=== PATIENT | female | born 2005 | race Caucasian/White ===

== ENCOUNTER 2024-08-25 21:43 | Inpatient (IN) | payer OTHER, MEDICAID, SELFPAY ==
[2024-08-25 21:50] VITALS: BP 121/80; PULSE 91; RESP 16; TEMP 36.7; O2SAT 98; BMI 20.9
--- NOTE | 2024-08-25 22:13 | ED.C_ITS ---
HPI - Psych 2 General: Chief Complaint: Psychiatric Symptoms Stated Complaint: SI Time Seen by Provider: 08/25/24 21:59 History of Present Illness: 18-year-old female with a history of dep ression who presents to the emergency room with suicidal ideation. She has had some superficial cutting on her wrist. She is very tearful and quiet. She was hospitalized previously here. She feels like her medications are not helping at this point. Related Data Home Medications Medication Instructions Recorded Confirmed cetirizine 10 mg tablet 10 mg PO DAILY PRN Allergy Symptoms 03/30/24 08/25/24 bupropion HCl 300 mg 24 hr tablet, 300 mg PO DAILY 08/25/24 08/25/24 extended release (Wellbutrin XL) trazodone 100 mg tablet 100 mg PO BEDTIME 08/25/24 08/25/24 Allergies Allergy/AdvReac Type Severity Reaction Status Date / Time No Known Allergies Allergy Verified 08/25/24 21:50 Review of Systems 2 Narrative: Constitutional symptoms: Negative except as documented in HPI. Skin symptoms: Negative except as documented in HPI. Eye symptoms: Negative except as documented in HPI. ENMT symptoms: Negative except as documented in HPI. Respiratory symptoms: Negative except as documented in HPI. Cardiovascular symptoms: Negative except as documented in HPI. Gastrointestinal symptoms: Negative except as documented in HPI. Genitourinary symptoms: Negative except as documented in HPI. Musculoskeletal symptoms: Negative except as documented in HPI. Neurologic symptoms: Negative except as documented in HPI. Psychiatric symptoms: Negative except as documented in HPI. Endocrine symptoms: Negative except as documented in HPI. [facility] ED 2 PFSH: Medical History (Updated 08/25/24 @ 23:32 by Kristy Disla MD) Psychiatric care Female Reproductive History: Date of last menstrual period: 08/23/24 Physical Exam 2 Narrative: EXAM NARRATIVE: General: Alert. no acute distress Skin: Warm, dry superficial wounds to palmar side of the wrist bilaterally. Head: Normocephalic, atraumatic. Neck: Supple, trachea midline. Eye: Extraocular movements are intact. Ears, nose, mouth and throat: Oral mucosa moist. Cardiovascular: Regular rate and rhythm, Normal peripheral perfusion. Respiratory: Lungs are clear to auscultation, respirations are non-labored, breath sounds are equal, Symmetrical chest wall expansion. Gastrointestinal: Soft, Nontender, Non distended, Normal bowel sounds. Musculoskeletal: Normal ROM, no deformity. Neurological: Alert and oriented to person, place, time, and situation, No focal neurological deficit observed. Psychiatric: Cooperative, depressed, expresses suicidal ideation. Course 2 Vital Signs: Vital signs: Vital Signs Temperature 98.0 F 08/25/24 21:50 Pulse Rate 91 08/25/24 21:50 Respiratory Rate 16 08/25/24 21:50 Blood Pressure 121/80 08/25/24 21:50 Pulse Oximetry 98 08/25/24 21:50 Oxygen Delivery Me thod Room Air 08/25/24 21:50 MDM - Psych Medical Decision Making Differential diagnosis: Patient with reported depression and suicidal ideation. concerns for infection, alcohol intoxication, cardiac issues or other medical problems prior to psychiatric admission. Workup: labwork, ekg ordered to evaluate the pathologies and to clear the patient medically prior to psychiatric admission Lab Review: Laboratory results were reviewed and interpreted by myself the emergency room physician. - Medically cleared. - EKG shows no ischemic changes. - Blood alcohol level is negative, -Tylenol and salicylate levels are negative. - Drug screen is negative - No signs of infection, urinalysis clear and white count is not elevated - No anemia. - BUN and creatinine are within normal limits. Consultation: Spoke with Dr. Singletary who agrees to admission. Assessment and plan: Suicidal ideation Depression Self-mutilating behavior -Admission to neuropsychiatric unit for continued evaluation and treatment. - All lab work was reviewed and interpreted personally by myself, the ER physician - Evaluation and treatment of this problem were appropriate in the emergency setting Lab Data 08/25/24 22:14 08/25/24 22:14 Laboratory Results WBC 10.18 10^3/uL (4.5-13.0) 08/25/24 22:14 RBC 4.29 10^6/uL (3.85-5.65) 08/25/24 22:14 Hgb 12.00 g/dL (12.4-14.8) L 08/25/24 22:14 Hct 35.9 % (36-47) L 08/25/24 22:14 MCV 83.7 fl (85-98) L 08/25/24 22:14 MCH 28.0 pg (27-33) 08/25/24 22:14 MCHC 33.4 g/dL (30-55) 08/25/24 22:14 RDW 12.0 % (12.1-15.1) L 08/25/24 22:14 Plt Count 238 10^3/cmm (157-399) 08/25/24 22:14 MPV 11.1 fL (7.4-10.4) H 08/25/24 22:14 Neut % (Auto) 66.3 % 08/25/24 22:14 Lymph % (Auto) 25.0 % 08/25/24 22:14 [place] % (Auto) 6.9 % 08/25/24 22:14 Eos % (Auto) 1.1 % 08/25/24 22:14 Baso % (Auto) 0.4 % 08/25/24 22:14 Neut # (Auto) 6.75 10^3/uL (1.8-8.0) 08/25/24 22:14 Lymph # (Auto) 2.6 10^3/uL (1.5-6.5) 08/25/24 22:14 [place] # (Auto) 0.7 10^3/uL (0.2-0.9) 08/25/24 22:14 Eos # (Auto) 0.1 10^3/uL (0.0-0.8) 08/25/24 22:14 Baso # (Auto) 0.0 10^3/uL (0.0-0.1) 08/25/24 22:14 Nucleated RBC % (auto) 0 % 08/25/24 22:14 Nucleated RBCs # 0.0 /100WBC 08/25/24 22:14 Sodium 135 mmol/L (136-145) L 08/25/24 22:14 Potassium 3.7 mmol/L (3.5-5.1) 08/25/24 22:14 Chloride 100 mmol/L (98-107) 08/25/24 22:14 Carbon Dioxide 23 mmol/L (22-29) 08/25/24 22:14 Anion Gap 15.7 (5-19) 08/25/24 22:14 BUN 13 mg/dL (6-20) 08/25/24 22:14 Creatinine 0.6 mg/dL (0.5-0.9) 08/25/24 22:14 GFR Calculation 128.8 mL/min (90-130) 08/25/24 22:14 Glucose 103 mg/dL (65-115) 08/25/24 22:14 Calculated Osmolality 280 mOsm/kg (285-295) L 08/25/24 22:14 Calcium 9.1 mg/dL (8.5-10.5) 08/25/24 22:14 Total Bilirubin 0.2 mg/dL (0.15-1.2) 08/25/24 22:14 AST 14 U/L (0-32) 08/25/24 22:14 ALT 12 U/L (0-33) 08/25/24 22:14 Alkaline Phosphatase 90 U/L (35-105) 08/25/24 22:14 Total Protein 7.1 g/dL (6.6-8.7) 08/25/24 22:14 Albumin 4.3 g/dL (3.5-5.2) 08/25/24 22:14 Globulin 2.8 g/dL (1.3-4.6) 08/25/24 22:14 TSH 3.10 uIU/mL (0.27-4.20) 08/25/24 22:14 HCG, Qual Negative (Negative) 08/25/24 22:00 Urine Color Yellow (Yellow) 08/25/24 22:00 Urine Appearance Clear (CLEAR) 08/25/24 22:00 Urine pH 7.0 (5-7) 08/25/24 22:00 Ur Specific [place] 1.013 (1.005-1.030) 08/25/24 22:00 Urine Protein Negative (Negative) 08/25/24 22:00 Urine Glucose (UA) Negative (Normal) 08/25/24 22:00 Urine Ketones Negative (Negative) 08/25/24 22:00 Urine Blood Negative (Negative) 08/25/24 22:00 Urine Nitrate Negative (Negative) 08/25/24 22:00 Urine Bilirubin Negative (Negative) 08/25/24 22:00 Urine Urobilinogen 1.0 mg/dL (Negative) 08/25/24 22:00 Ur Leukocyte Esterase Negative (Negative) 08/25/24 22:00 Urine RBC 0-2 /hpf (0-2) 08/25/24 22:00 Urine WBC 0-5 /hpf (0-5) 08/25/24 22:00 Ur Squamous Epith Cells 0-5 /hpf (0-5) 08/25/24 22:00 Amorphous Sediment Not Reportable 08/25/24 22:00 Urine Bacteria None seen /hpf (NONE) 08/25/24 22:00 Hyaline Casts 0-4 /lpf H 08/25/24 22:00 Salicylates < 0.3 mg/dL (3-10) L 08/25/24 22:14 Urine Opiates Screen Negative ng/mL (Negative) 08/25/24 22:00 Acetaminophen < 5.0 ug/mL (10-30) L 08/25/24 22:14 Ur Barbiturates Screen Negative ng/mL (Negative) 08/25/24 22:00 Ur Phencyclidine Scrn Negative ng/mL (Negative) 08/25/24 22:00 Ur Amphetamines Screen Negative ng/mL (Negative) 08/25/24 22:00 U Benzodiazepines Scrn Negative ng/mL (Negative) 08/25/24 22:00 Urine Cocaine Screen Negative ng/mL (Negative) 08/25/24 22:00 U Marijuana (THC) Screen Negative ng/mL (Negative) 08/25/24 22:00 Ethyl Alcohol < 10 mg/dL (0-10) 08/25/24 22:14 No radiology studies performed this visit Discharge Plan Discharge Patient Disposition: Admitted As Inpatient Clinical Impression: Suicidal ideation, Depression, Self mutilating behavior Condition: Stable Coding Level of Care Code ED [employer] Coloring Operator for Giselle Rabago
[2024-08-25 22:31] LABS: Basophils % 0.4 %; Eosinophils # 0.1 10^3/uL (0.0-0.8); Eosinophils % 1.1 %; Hematocrit 35.9 % (36-47); Lymphocytes # 2.6 10^3/uL (1.5-6.5); Mean Corpuscular HGB Conc 33.4 g/dL (30-55); Mean Corpuscular Volume 83.7 fl (85-98); Mean Platelet Volume 11.1 fL (7.4-10.4); Monocytes # 0.7 10^3/uL (0.2-0.9); Monocytes % 6.9 %; Neutrophils # 6.75 10^3/uL (1.8-8.0); Neutrophils % 66.3 %; Nucleated Red Blood Cells % 0 %; Platelet Count 238 10^3/cmm (157-399); Red Blood Count 4.29 10^6/uL (3.85-5.65); White Blood Count 10.18 10^3/uL (4.5-13.0)
[2024-08-25 22:34] LABS: HCG Qualitative Urine. Negative (Negative)
[2024-08-25 22:39] LABS: Bilirubin Urine Negative (Negative); Blood Urine Negative (Negative); Glucose Urine UA Negative (Normal); Ketones Urine Negative (Negative); Leukocyte Esterase Urine Negative (Negative); Nitrate Urine Negative (Negative); Protein Urine Negative (Negative); Specific Gravity, Urine 1.013 (1.005-1.030); Urine Appearance Clear (CLEAR); Urine Color Yellow (Yellow)
[2024-08-25 22:44] LABS: Bacteria Urine None Seen /hpf; Hyaline Casts Urine 0-4 /lpf; RBC Urine 0-2 /hpf (0-2); Squamous Epithelial Cell Urine 0-5 /hpf (0-5); WBC Urine 0-5 /hpf (0-5)
[2024-08-25 22:47] LABS: Amphetamines Screen Urine Negative (Negative); Barbiturates Screen Urine Negative (Negative); Benzodiazepines Screen Urine Negative (Negative); Cocaine Screen Urine Negative (Negative); Opiate Screen Urine Negative (Negative); PCP Screen Urine Negative (Negative); THC Screen Urine Negative (Negative)
[2024-08-25 22:56] LABS: Acetaminophen < 5.0 ug/mL (10-30); Alanine Aminotransferase 12 U/L (0-33); Albumin Level 4.3 g/dL (3.5-5.2); Alcohol Level < 10 mg/dL (0-10); Alkaline Phosphatase 90 U/L (35-105); Anion Gap 15.7 (5-19); Aspartate Amino Transferase 14 U/L (0-32); Blood Urea Nitrogen 13 mg/dL (6-20); Calcium 9.1 mg/dL (8.5-10.5); Carbon Dioxide 23 mmol/L (22-29); Chloride 100 mmol/L (98-107); Creatinine Clr Calc Pharmacy 140.8636; Globulin 2.8 g/dL (1.3-4.6); Glomerular Filtration Rate 128.8 mL/min (90-130); Glucose 103 mg/dL (65-115); Osmolality Calculated 280 mOsm/kg (285-295); Potassium 3.7 mmol/L (3.5-5.1); Salicylate < 0.3 mg/dL (3-10); Sodium 135 mmol/L (136-145); Total Bilirubin 0.2 mg/dL (0.15-1.2); Total Protein 7.1 g/dL (6.6-8.7)
[2024-08-25 23:45] VITALS: PULSE 92; RESP 16; O2SAT 98
[2024-08-26] VITALS: BP 129/72; PULSE 80; RESP 18; O2SAT 96
--- NOTE | 2024-08-26 00:05 | PC.NURSE ---
96 Hour Involuntary Hold Patient Rights have been reviewed with the patient and a copy of the same has been given to her. Hospice Superintendent Irene Prakash was present at bedside at the time of presentation of Rights.
[2024-08-26 01:12] VITALS: BP 120/71; PULSE 89; RESP 18; TEMP 37.1; O2SAT 98
[2024-08-26] MEDS: trazodone 100 mg Tablet PO ×2 (02:14→21:33)
[2024-08-26] MEDS: hyDROXYzine 25 mg Capsule 50 MG PO ×2 (02:17→21:33)
--- NOTE | 2024-08-26 06:35 | PC.NURSE ---
vs not collected resp 16
--- NOTE | 2024-08-26 07:50 | PC.OT ---
OT evaluation attempted with pt declining to be seen. Will attempt OT evaluation again at a later time.
[2024-08-26] MEDS: buPROPion XL (24 HR) 300 mg Tablet PO (08:26)
[2024-08-26] MEDS: OLANZapine 5 mg ODT PO (13:39)
--- NOTE | 2024-08-26 13:51 | W.PM.NPUH&PS ---
Providers/Chief Complaint Admitting Physician: Nader Singletary MD Primary Care Provider: Ludy Davis NP Chief Complaint: SI HPI NPU History of Present Illness Dottie Soto is a 18 year old female with 1 previous inpatient psychiatric hospitalization who presented to the emergency department with concerns about suicidal ideation. The patient was admitted to the neuropsychiatric unit for further evaluation and treatment. She reports that she has been receiving treatment under Dr. Yoder at the [facility]. She reported that she has been struggling with having difficulties with controlling her thoughts at this time. She endorses depressed mood for several years but reports that she has had increased episodes of crying, diminished energy, difficulties with concentration and difficulties with falling asleep and staying asleep. She reports that she has had increasing feelings of guilt. She reports that she had been struggling with having control over intrusive sexualized images and her had then involved people including both children and adults. She had reported that she had not acted on any of these images but reported that she found these images to be quite disturbing. During the interview, the patient had asked that the television script writer come closer to her to reveal this information as she had endorsed that she had felt like her thoughts and images were somehow being broadcasted to others and stated that she was not certain that these thoughts were being kept in her own mind. She reports that she had had this problem with intrusive sexualized images and intrusive thoughts for more than a year but stated that she has been trying to keep it under control. She reports that she has been struggling with keeping it under control as she requested a change in medication regimen. She reports that for the first time she has been having some difficulties in school as well with declining grades and diminished concentration after having straight A's in college the prior semester. She does report increased feelings of hopelessness. She denies any drug or alcohol use. She had reported having engaged in some rituals but reported that there were no clear improvements once the rituals were completed. She states that when she was stressed she would often go to the bathroom and sit on the toilet or would attempt to go into a room. She reports that the intrusive thoughts appear to be out of nowhere and reports that they have been scaring her recently. She denies any auditory hallucinations or visual hallucinations at this time. She did not endorse any problems with paranoia. She did report that she often would eat excessively when anxious and described having problems with social anxiety as well in the past. Patient's urine screen was negative for all drugs or alcohol. She does report that she has had increasing stress as she is scheduled to be in 2 weeks to her boyfriend. Inpatient psychiatric history: The patient had reported having been hospitalized at [facility] 1 time in the past for similar issues including suicidal ideation and states having spent 10 days there in January 2024. It appears that during that stay the patient had been placed on risperidone and gradually transition to Invega sustain a but was given only 1 shot of 234 mg prior to arriving at her outpatient appointment at which time she did not receive either the oral risperidone nor the 156 mg of IM Invega. Outpatient psychiatric history: Patient reports receiving weekly therapy at [facility] and states seeing Dr. Yoder for medication management every few months. Previous psychiatric diagnosis includes obsessive-compulsive personality traits, social anxiety disorder, major depressive disorder Current medications: Wellbutrin XL 300 mg daily, trazodone 100 mg at night, Zyrtec 10 mg daily Medical history: None other than seasonal allergies Surgical history: None Allergies: No known drug allergies Legal history: None Family psychiatric history: None Substance abuse history: None Social history: There are no history of developmental delays. Patient currently lives at home with her mother while [employer] [facility]. She had been described as an a student and was the valedictorian of her high school class. She describes herself as a worship Yazidi. She reports that her parents when she was only 9 years old. She has a younger sister aged 18 that she lives in the household as well. She had reported having difficulties with the divorce. She reports that she continues to maintain a relationship with her father. She had hopes of going to nursing school and states that she has been involved in a relationship with a man and states that she is scheduled to be in 2 weeks. She did not endorse being employed at this time. Meds NPU Home Medications Medication Instructions Recorded Confirmed Last Taken Type cetirizine 10 mg tablet 10 mg PO DAILY PRN Allergy Symptoms 03/30/24 08/25/24 Unknown History bupropion HCl 300 mg 24 hr tablet, 300 mg PO DAILY 08/25/24 08/25/24 Unknown History extended release (Wellbutrin XL) trazodone 100 mg tablet 100 mg PO BEDTIME 08/25/24 08/25/24 1 Day Ago History ~08/24/24 Allergies Allergy/AdvReac Type Severity Reaction Status Date / Time No Known Allergies Allergy Verified 08/25/24 21:50 PFSH NPU PFSH: Medical History (Updated 08/26/24 @ 14:10 by Travis Alonso MD) Psychiatric care Mental Status Exam MSE Comments: The patient is alert and oriented to person place time and situation. Her hygiene appeared fair. She appeared somewhat anxious on interview. Speech was decreased in volume and initially halting with some decreased in productivity initially. She had fleeting eye contact. There was evidence of moderate psychomotor retardation. There was no evidence of any abnormal involuntary motor movements, tics, or tremors appreciated. Her mood was described as depressed. Her affect was mood congruent and restricted in range. She had appeared tearful at times during the interview. Her thought process was linear, logical, and goal-directed. She denied any auditory or visual hallucinations but did endorse intrusive sexual images that appear to be somewhat distracting to her. She had endorsed a belief of thought broadcasting with no thought insertion. She denied any homicidal or suicidal ideation. Her recent and remote memory appeared fair. She was pleasant and cooperative during the interview. Her insight appeared limited. Her judgment appeared guarded. Her impulse control appeared fair at this time. Vitals/I&O/Wt Last Vital Signs Temp 98.7 F 08/26/24 01:12 Pulse 89 08/26/24 01:12 Resp 18 08/26/24 01:12 BP 120/71 08/26/24 01:12 Pulse Ox 98 08/26/24 01:12 O2 Del Method Room Air 08/26/24 01:13 08/25/24 08/26/24 08/26/24 22:59 06:59 14:59 Intake Total 0 / 0 Balance 0 / 0 Weight last 48 hrs Weight 58.967 kg Data NPU 08/25/24 22:14 08/25/24 22:14 A&P Assessment and plan (1) MDD (major depressive disorder), recurrent, severe, with psychosis: Plan 18-year-old female with a history of major depressive disorder who reports some psychotic symptoms at this time that appear to be worsening with unknown acute stressors currently not on an antipsychotic at this time. The patient appears willing to receive help and would benefit from a medication to prevent further decompensation. #1.? Engage patient in individual milieu and group therapy. #2?? Recommend sober living treatment at the highest level of care to which the patient is willing to commit #3?? Restart Wellbutrin xl 300mg in am, and add trazodone 100mg at night, ADD Abilify to target psychosis. #4?? TO-15 minute checks? #5?? Will attempt to gather collateral information Involuntary Hold Information 96 Hour Hold: 96 Hour Involuntary Admission: Yes 96 Hour Hold Ending Date: 08/31/24 96 Hour Hold Ending Time: 23:45 Other Hold: Hold End Date: 08/31/24 Attestations NPU Medical Necessity Statement*: Inpatient hospitalization is medically necessary and deemed to ?be ?the clinically appropriate intervention ?at this time.? We will monitor/initiate medications and make changes as indicated.? The patient will be in the hospital for over 2 midnights.? The patient?s likely length of stay 5-7 days. Coding Level of Care Code Acute Code for Chg Fwd Diagnoses MDD (major depressive disorder), recurrent, severe, with psychosis F33.3
[2024-08-26 14:00] VITALS: BP 105/63; PULSE 91; RESP 18; TEMP 36.7; O2SAT 99
[2024-08-26] MEDS: ARIPiprazole 10 mg Tablet 5 MG PO (14:57)
[2024-08-26] MEDS: [UNRECOGNIZED DRUG - OTHER] 1 EACH XX (16:34)
[2024-08-26 21:29] VITALS: BP 108/66; PULSE 105; RESP 18; TEMP 36.7; O2SAT 98
[2024-08-27 06:00] VITALS: BP 99/66; PULSE 106; RESP 16; TEMP 36.7; O2SAT 99
[2024-08-27] MEDS: ARIPiprazole 10 mg Tablet 5 MG PO (08:32)
[2024-08-27] MEDS: buPROPion XL (24 HR) 300 mg Tablet PO (08:32)
[2024-08-27] MEDS: NON-FORMULARY MEDICATION 1 EACH XX (09:30)
[2024-08-27 14:00] VITALS: BP 115/78; PULSE 98; RESP 16; TEMP 36.5; O2SAT 100
--- NOTE | 2024-08-27 16:00 | P.NPUPN_ITS ---
Subjective NPU 2 Subjective: 18-year-old female admitted with depress ion with psychotic features currently on Wellbutrin and Abilify. Patient had reported having less frequent intrusive sexual images. She had continued to report some fear that these may be broadcasted to others. She had reported that she had slept better for the first time in many months. She had continued to report struggles with anxiety particularly in social situations describing symptom suggestive of social anxiety disorder. She had reported having these problems since childhood. She had reported no previous trials on SSRI medications. She had reported having taken sublingual Zyprexa last night that had made her feel excessively tired. She remained somewhat isolative on the milieu. Mental Status Exam 2 MSE Comments: The patient is alert and oriented to person place time and situation. Her hygiene appeared fair. She remained somewhat anxious on interview. Speech was decreased in volume and initially halting with diminished productivity. She had fleeting eye contact. There was evidence of moderate psychomotor retardation. There was no evidence of any abnormal involuntary motor movements, tics, or tremors appreciated. Her mood was described as depressed. Her affect was mood congruent and restricted in range. Her thought process was linear, logical, and goal-directed. She denied any auditory or visual hallucinations but did endorse intrusive sexual images that appear to be somewhat distracting to her. She had endorsed a belief of thought broadcasting with no thought insertion. She denied any homicidal or suicidal ideation. Her recent and remote memory appeared fair. She was pleasant and cooperative during the interview. Her insight appeared limited. Her judgment appeared guarded. Her impulse control appeared fair at this time. Vitals/I&O/Wt Last Vital Signs Temp 97.7 F 08/27/24 14:00 Pulse 98 08/27/24 14:00 Resp 16 08/27/24 14:00 BP 115/78 08/27/24 14:00 Pulse Ox 100 08/27/24 14:00 O2 Del Method Room Air 08/27/24 06:00 Weight last 48 hrs Weight 58.967 kg Data NPU 08/25/24 22:14 08/25/24 22:14 A&P Assessment and plan (1) MDD (major depressive disorder), recurrent, severe, with psychosis: (2) Social anxiety disorder: Plan 18-year-old female with a history of major depressive disorder who reports some psychotic symptoms at this time that appear to be worsening with unknown acute stressors currently not on an antipsychotic at this time. The patient appears willing to receive help and would benefit from a medication to prevent further decompensation. #1.? Engage patient in individual milieu and group therapy. #2?? Recommend sober living treatment at the highest level of care to which the patient is willing to commit #3?? Increase abilify to 7.5mg daily, Decrease wellbutrin xl 150mg in am, add zoloft 25mg daily. #4?? TO-15 minute checks? #5?? Will attempt to gather collateral information Involuntary Hold Information 2 96 Hour Hold: 96 Hour Involuntary Admission: Yes 96 Hour Hold Ending Date: 08/31/24 96 Hour Hold Ending Time: 23:45 Other Hold: Hold End Date: 08/31/24 Attestations NPU 2 Medical Necessity Statement*: Inpatient hospitalization is medically necessary and deemed to ?be ?the clinically appropriate intervention ?at this time.? We will monitor/initiate medications and make changes as indicated.? The patient?s likely length of stay 5-7 days. Coding Level of Care Code Acute Code for Chg Fwd Diagnoses MDD (major depressive disorder), recurrent, severe, with psychosis F33.3 Social anxiety disorder F40.10
[2024-08-27 19:54] VITALS: BP 107/65; PULSE 91; RESP 18; TEMP 36.7; O2SAT 99
[2024-08-27] MEDS: hyDROXYzine 25 mg Capsule 50 MG PO (20:34)
[2024-08-27] MEDS: trazodone 100 mg Tablet PO (20:34)
[2024-08-28 06:00] VITALS: BP 104/73; PULSE 94; RESP 18; TEMP 36.6; O2SAT 98; BMI 21.3
[2024-08-28] MEDS: buPROPion XL (24 HR) 150 mg Tablet PO (08:28)
[2024-08-28] MEDS: NON-FORMULARY MEDICATION 1 EACH XX (08:28)
[2024-08-28] MEDS: ARIPiprazole 10 mg Tablet 7.5 MG PO (08:28)
[2024-08-28] MEDS: sertraline 50 mg Tablet 25 MG PO (08:30)
--- NOTE | 2024-08-28 12:34 | P.NPUPN_ITS ---
Subjective NPU 2 Subjective: 18-year-old female admitted with depress ion with psychotic features currently on Wellbutrin and Abilify. The patient had reported that the intrusive sexual images had been less intense and less frequent. She had endorsed continuing to feel at times like others around her could know that she was having these experiences by being around her. She had reported that she had found them to be more distracting over the past few weeks and stated that this had led to a decline in her ability to function in college. She had also reported a history of significant anxiety and was amenable to switching her antidepressant at this time. She had continued to isolate herself on the milieu. She had reported that she was feeling better. She had reported some fleeting suicidal thoughts at this time. Mental Status Exam 2 MSE Comments: The patient is alert and oriented to person place time and situation. Her hygiene appeared fair. She remained somewhat anxious on interview. Speech was decreased in volume, no halting with diminished rate but normal productivity. She had fleeting eye contact. There was evidence of moderate psychomotor retardation. There was no evidence of any abnormal involuntary motor movements, tics, or tremors appreciated. Her mood was described as depressed. Her affect was mood congruent and restricted in range. Her thought process was linear, logical, and goal-directed. She denied any auditory or visual hallucinations but did endorse intrusive sexual images that appear to be somewhat distracting to her. She had continued reports of concerns of thought broadcasting with no thought insertion. She denied any homicidal or suicidal ideation. Her recent and remote memory appeared fair. She was pleasant and cooperative during the interview. Her insight appeared limited. Her judgment appeared guarded. Her impulse control appeared fair at this time. Vitals/I&O/Wt Last Vital Signs Temp 97.9 F 08/28/24 06:00 Pulse 94 08/28/24 06:00 Resp 18 08/28/24 06:00 BP 104/73 08/28/24 06:00 Pulse Ox 98 08/28/24 06:00 O2 Del Method Room Air 08/28/24 06:00 Weight last 48 hrs Weight 59.874 kg Data NPU 08/25/24 22:14 08/25/24 22:14 A&P Assessment and plan (1) MDD (major depressive disorder), recurrent, severe, with psychosis: (2) Social anxiety disorder: Plan 18-year-old female with a history of major depressive disorder who reports some psychotic symptoms at this time that appear to be worsening with unknown acute stressors currently not on an antipsychotic at this time. The patient appears willing to receive help and would benefit from a medication to prevent further decompensation. #1.? Engage patient in individual milieu and group therapy. #2?? Recommend sober living treatment at the highest level of care to which the patient is willing to commit #3?? Increase abilify to 10mg daily, Decrease wellbutrin xl 150mg in am, continue zoloft 25mg daily with increase in 2-3 days. #4?? TO-15 minute checks? #5?? Will attempt to gather collateral information Involuntary Hold Information 2 96 Hour Hold: 96 Hour Involuntary Admission: Yes 96 Hour Hold Ending Date: 08/31/24 96 Hour Hold Ending Time: 23:45 Other Hold: Hold End Date: 08/31/24 Attestations NPU 2 Medical Necessity Statement*: Inpatient hospitalization is medically necessary and deemed to ?be ?the clinically appropriate intervention ?at this time.? We will monitor/initiate medications and make changes as indicated.? The patient?s likely length of stay 5-7 days. Coding Level of Care Code Acute Code for Chg Fwd Diagnoses MDD (major depressive disorder), recurrent, severe, with psychosis F33.3 Social anxiety disorder F40.10
[2024-08-28 14:00] VITALS: BP 112/71; PULSE 98; RESP 17; TEMP 36.7; O2SAT 98
[2024-08-28 19:43] VITALS: BP 102/61; PULSE 96; RESP 18; TEMP 36.7; O2SAT 100
[2024-08-28] MEDS: trazodone 100 mg Tablet PO (20:06)
[2024-08-28] MEDS: hyDROXYzine 25 mg Capsule 50 MG PO (20:06)
[2024-08-29 06:00] VITALS: BP 109/76; PULSE 110; RESP 18; TEMP 36.8; O2SAT 99
--- NOTE | 2024-08-29 08:42 | PC.NURSE ---
RESTING IN BED, EVASIVE WITH ASSESSMENT. FLAT AFFECT IS NOTED AND DEPRESSED MOOD. ISOLATES AND WITHDRAWN TO ROOM. REPORTS SHE SLEPT WELL LAST NIGHT. RATES ANXIETY / AND DEPRESSION /.DENIES SI/HI AND AVH AT THIS TIME. REPORTS NO BM SINCE THURSDAY. NEW ORDERS RECEIVED FROM DR. GUADALUPE TO GIVE MILK OF MAG 30 ML PO BID PRN CONSTIPATION. PT EDUCATED ON NEW ORDERS. SUPPORT WAS VOICED.
[2024-08-29] MEDS: buPROPion XL (24 HR) 150 mg Tablet PO (08:48)
[2024-08-29] MEDS: magnesium hydroxide 30 mL UDC PO (08:49)
[2024-08-29] MEDS: sertraline 50 mg Tablet 25 MG PO (08:49)
[2024-08-29] MEDS: ARIPiprazole 10 mg Tablet PO (08:49)
[2024-08-29] MEDS: NON-FORMULARY MEDICATION 1 EACH XX (08:49)
--- NOTE | 2024-08-29 11:59 | P.NPUPN_ITS ---
Subjective NPU 2 Subjective: Patient presented today reporting that things were mostly going okay. She endorsed being tired today and not being certain whether that was related to the medication or not but otherwise she denied any side effects to medication. She was somewhat isolative in her room for much of the day. She acknowledged that she thought the medications were helping and we discussed the risks, benefits and alternatives of moving forward with the plan of increasing her Zoloft tomorrow to 50 mg p.o. daily and possibly increasing Abilify and she understood and agreed to proceed as is documented in this note. Mental Status Exam 2 MSE Comments: This is a slender white female in hospital scrubs with adequate grooming and eye contact. No abnormal movements except for mild to moderate psychomotor retardation. Cooperative with exam in mild distress. Speech was decreased rate and volume. Mood described as a little down, affect was congruent and restricted. Her thought process was linear, logical, and goal-directed. Thought content: Patient denied suicidal or homicidal ideation, there were no delusions reported or noted, she denied any auditory or visual hallucinations but did endorse intrusive sexual images that appear to be somewhat distracting to her. She had continued reports of concerns of thought broadcasting with no thought insertion. Attention and concentration are intact and memory appeared mostly reliable but no more formally tested. She is alert and oriented x 3. Her insight and judgment were limited. Her impulse control appeared fair at this time. Vitals/I&O/Wt Last Vital Signs Temp 98.3 F 08/29/24 06:00 Pulse 110 H 08/29/24 06:00 Resp 18 08/29/24 06:00 BP 109/76 08/29/24 06:00 Pulse Ox 99 08/29/24 06:00 O2 Del Method Room Air 08/29/24 06:00 Weight last 48 hrs Weight 59.874 kg Data NPU 08/25/24 22:14 08/25/24 22:14 A&P Assessment and plan (1) MDD (major depressive disorder), recurrent, severe, with psychosis: (2) Social anxiety disorder: Plan 18-year-old female with a history of major depressive disorder who reports some psychotic symptoms at this time that appear to be worsening with unknown acute stressors currently not on an antipsychotic at this time. The patient appears willing to receive help and would benefit from a medication to prevent further decompensation. 1.? Encourage individual, group and milieu therapy. 2.??Encourage sober living treatment at the highest level of care to which the patient is willing to commit. 3.? Increased abilify to 10mg daily, Decrease wellbutrin xl 150mg in am, continue zoloft 25mg daily with increase in 1-2 days. 4.??Continue every 15 minute checks for safety.? 5.??Will attempt to gather collateral information Involuntary Hold Information 2 96 Hour Hold: 96 Hour Involuntary Admission: Yes 96 Hour Hold Ending Date: 08/31/24 96 Hour Hold Ending Time: 23:45 Other Hold: Hold End Date: 08/31/24 Attestations NPU 2 Medical Necessity Statement*: Inpatient hospitalization is medically necessary and the clinically appropriate intervention at this time.? We will monitor/initiate medications and make changes as indicated.? The patient?s likely length of stay 5-7 days. Coding Level of Care Code Acute Code for g Fwd Diagnoses MDD (major depressive disorder), recurrent, severe, with psychosis F33.3 Social anxiety disorder F40.10
[2024-08-29 14:00] VITALS: BP 114/53; PULSE 97; RESP 17; TEMP 36.4; O2SAT 99
--- NOTE | 2024-08-29 18:30 | PC.NURSE ---
PT REPORTED TO STAFF I GOT CHOKED ON MY FRUIT PUNCH AND THREW UP A LITTLE BIT. PT ALSO REPORTED THIS MORNING SHE GOT SICK EATING BREAKFAST. REPORTED INFORMATION TO DR. GUADALUPE AND NO NEW ORDERS WERE RECEIVED. WILL PASS ON TO NURSING STAFF TO MONITOR AND REPORT NEEDED. PT STATES SHE IS FEELING BETTER AND IS EATING SALTINES AND DRINKING WATER WITHOUT DIFFICULTY.
[2024-08-29 20:08] VITALS: BP 111/75; PULSE 98; RESP 16; O2SAT 97
[2024-08-30 06:00] VITALS: BP 104/70; PULSE 98; RESP 16; TEMP 36.9; O2SAT 98
[2024-08-30] MEDS: sertraline 50 mg Tablet 25 MG PO ×2 (08:19→17:49)
[2024-08-30] MEDS: buPROPion XL (24 HR) 150 mg Tablet PO (08:19)
[2024-08-30] MEDS: ARIPiprazole 10 mg Tablet PO (08:19)
[2024-08-30] MEDS: NON-FORMULARY MEDICATION 1 EACH XX (08:20)
--- NOTE | 2024-08-30 11:46 | P.NPUPN_ITS ---
Subjective NPU 2 Subjective: Patient presented today reporting that she is feeling some improvement. We discussed the risks, benefits and alternatives of increasing her Zoloft to 50 mg daily today and she understood and agreed to proceed as is documented in this note. We discussed the likelihood of discontinuing the Wellbutrin XL at discharge and the possibility of discharge by the end of the week. We discussed the 21-day hold process and the possibility that we could just agree on a possible discharge date if she is agreeable to stay. She denied any side effects to the medication and reports she starting to feel a little less sleepy and is worried about getting back to school but knows she needs a little more time on the medication so feels this weekend or the end of the week could be a reasonable time. Mental Status Exam 2 MSE Comments: This is a slender white female in hospital scrubs with adequate grooming and eye contact. No abnormal movements except for mild to moderate psychomotor retardation. Cooperative with exam in mild distress. Speech was decreased rate and volume. Mood described as a little better, affect was congruent but restricted. Her thought process was linear, logical, and goal-directed. Thought content: Patient denied suicidal or homicidal ideation, there were no delusions reported or noted, she denied any auditory or visual hallucinations but did endorse intrusive sexual images that appear to be somewhat distracting to her. She had continued reports of concerns of thought broadcasting with no thought insertion. Attention and concentration are intact and memory appeared mostly reliable but no more formally tested. She is alert and oriented x 3. Her insight and judgment were limited. Her impulse control appeared fair at this time. Vitals/I&O/Wt Last Vital Signs Temp 98.4 F 08/30/24 06:00 Pulse 98 08/30/24 06:00 Resp 16 08/30/24 06:00 BP 104/70 08/30/24 06:00 Pulse Ox 98 08/30/24 06:00 O2 Del Method Room Air 08/30/24 06:00 Data NPU 08/25/24 22:14 08/25/24 22:14 A&P Assessment and plan (1) MDD (major depressive disorder), recurrent, severe, with psychosis: (2) Social anxiety disorder: Plan 18-year-old female with a history of major depressive disorder who reports some psychotic symptoms at this time that appear to be worsening with unknown acute stressors currently not on an antipsychotic at this time. The patient appears willing to receive help and would benefit from a medication to prevent further decompensation. 1.? Encourage individual, group and milieu therapy. 2.??Encourage sober living treatment at the highest level of care to which the patient is willing to commit. 3.? Increased abilify to 10mg daily, Decrease wellbutrin xl 150mg in am, increased Zoloft to 50 mg p.o. daily. Likely discontinue Wellbutrin at discharge. 4.??Continue every 15 minute checks for safety.? 5.??Will attempt to gather collateral information Involuntary Hold Information 2 96 Hour Hold: 96 Hour Involuntary Admission: Yes 96 Hour Hold Ending Date: 08/31/24 96 Hour Hold Ending Time: 23:45 Other Hold: Hold End Date: 08/31/24 Attestations NPU 2 Medical Necessity Statement*: Inpatient hospitalization is medically necessary and the clinically appropriate intervention at this time.? We will monitor/initiate medications and make changes as indicated.? The patient?s likely length of stay 3-6 days. Coding Level of Care Code Acute Code for Chg Fwd Diagnoses MDD (major depressive disorder), recurrent, severe, with psychosis F33.3 Social anxiety disorder F40.10
[2024-08-30 14:00] VITALS: BP 122/79; PULSE 105; RESP 17; TEMP 36.6; O2SAT 99
[2024-08-30 19:58] VITALS: BP 112/57; PULSE 102; RESP 18; TEMP 36.5; O2SAT 98
[2024-08-30] MEDS: trazodone 100 mg Tablet PO (20:28)
[2024-08-30] MEDS: hyDROXYzine 25 mg Capsule 50 MG PO (20:28)
[2024-08-30] MEDS: docusate sodium 100 mg Capsule PO (20:28)
[2024-08-31 06:00] VITALS: BP 111/76; PULSE 110; RESP 18; TEMP 36.8; O2SAT 98
[2024-08-31] MEDS: sertraline 50 mg Tablet PO (08:39)
[2024-08-31] MEDS: buPROPion XL (24 HR) 150 mg Tablet PO (08:39)
[2024-08-31] MEDS: NON-FORMULARY MEDICATION 1 EACH XX (08:39)
[2024-08-31] MEDS: ARIPiprazole 10 mg Tablet PO (08:39)
[2024-08-31 14:00] VITALS: BP 111/62; PULSE 125; RESP 18; TEMP 37; O2SAT 99
--- NOTE | 2024-08-31 14:16 | P.NPUPN_ITS ---
Subjective NPU 2 Subjective: Patient presented today reporting that things are okay. We discussed the risks, benefits and alternatives of continuing with the plan for treatment and targeting Thursday or Thursday as the discharge date and she understood and agreed to proceed as is documented in his note. She reports she is adjusting to the medication and feeling a little better and she was happy about the prospect of discharge sooner rather than later. She denied any side effects to the medication. Mental Status Exam 2 MSE Comments: This is a slender white female in hospital scrubs with adequate grooming and eye contact. No abnormal movements except for mild to moderate psychomotor retardation. Cooperative with exam in mild distress. Speech was decreased rate and volume. Mood described as a little better, affect was congruent but restricted. Her thought process was linear, logical, and goal-directed. Thought content: Patient denied suicidal or homicidal ideation, there were no delusions reported or noted, she denied any auditory or visual hallucinations but did endorse intrusive sexual images that appear to be somewhat distracting to her. She had continued reports of concerns of thought broadcasting with no thought insertion. Attention and concentration are intact and memory appeared mostly reliable but no more formally tested. She is alert and oriented x 3. Her insight and judgment were limited. Her impulse control appeared fair at this time. Vitals/I&O/Wt Last Vital Signs Temp 98.2 F 08/31/24 06:00 Pulse 110 H 08/31/24 06:00 Resp 18 08/31/24 06:00 BP 111/76 08/31/24 06:00 Pulse Ox 98 08/31/24 06:00 O2 Del Method Room Air 08/31/24 06:00 Data NPU 08/25/24 22:14 08/25/24 22:14 A&P Assessment and plan (1) MDD (major depressive disorder), recurrent, severe, with psychosis: (2) Social anxiety disorder: Plan 18-year-old female with a history of major depressive disorder who reports some psychotic symptoms at this time that appear to be worsening with unknown acute stressors currently not on an antipsychotic at this time. The patient appears willing to receive help and would benefit from a medication to prevent further decompensation. 1.? Encourage individual, group and milieu therapy. 2.??Encourage sober living treatment at the highest level of care to which the patient is willing to commit. 3.? Increased abilify to 10mg daily, Decrease wellbutrin xl 150mg in am, increased Zoloft to 50 mg p.o. daily. Discontinue Wellbutrin XL at discharge. 4.??Continue every 15 minute checks for safety.? 5.??Will attempt to gather collateral information Involuntary Hold Information 2 96 Hour Hold: 96 Hour Involuntary Admission: Yes 96 Hour Hold Ending Date: 08/31/24 96 Hour Hold Ending Time: 23:45 Other Hold: Hold End Date: 08/31/24 Attestations NPU 2 Medical Necessity Statement*: Inpatient hospitalization is medically necessary and the clinically appropriate intervention at this time.? We will monitor/initiate medications and make changes as indicated.? The patient?s likely length of stay 2-3 days. Coding Level of Care Code Acute Code for Chg Fwd Diagnoses MDD (major depressive disorder), recurrent, severe, with psychosis F33.3 Social anxiety disorder F40.10
[2024-08-31 20:16] VITALS: BP 106/62; PULSE 105; RESP 15; TEMP 37.1; O2SAT 97
[2024-08-31] MEDS: trazodone 100 mg Tablet PO (20:46)
[2024-08-31] MEDS: hyDROXYzine 25 mg Capsule 50 MG PO (20:46)
[2024-09-01 06:00] VITALS: BP 104/63; PULSE 96; RESP 15; TEMP 36.7; O2SAT 99
[2024-09-01] MEDS: NON-FORMULARY MEDICATION 1 EACH XX (09:09)
[2024-09-01] MEDS: buPROPion XL (24 HR) 150 mg Tablet PO (09:09)
[2024-09-01] MEDS: sertraline 50 mg Tablet PO (09:09)
[2024-09-01] MEDS: ARIPiprazole 10 mg Tablet PO (09:09)
[2024-09-01] MEDS: polyethylene glycol 3350 Pkt 17 gm PO (13:06)
[2024-09-01 14:00] VITALS: BP 110/71; PULSE 102; RESP 18; TEMP 37.1; O2SAT 97
--- NOTE | 2024-09-01 19:38 | P.NPUPN_ITS ---
Subjective NPU 2 Subjective: Patient presented today reporting that she is doing a little better. She continues to be slightly subdued and isolated per staff reports and direct observation but appears to have a shy or very reserved demeanor at baseline. She continues to report improvement and decrease in symptoms and a hopefulness to discharge sooner rather than later so that she can get back to her school and her life. We discussed the likelihood of discharge in the next 48 hours with a high possibility of discharge tomorrow. She denied any side effects to the medication. Mental Status Exam 2 MSE Comments: This is a slender white female in hospital scrubs with adequate grooming and eye contact. No abnormal movements except for mild to moderate psychomotor retardation. Cooperative with exam in mild distress. Speech was decreased rate and volume. Mood described as a little better, affect was congruent but restricted. Her thought process was linear, logical, and goal-directed. Thought content: Patient denied suicidal or homicidal ideation, there were no delusions reported or noted, she denied any auditory or visual hallucinations but did endorse intrusive sexual images that appear to be somewhat distracting to her. She had continued reports of concerns of thought broadcasting with no thought insertion. Attention and concentration are intact and memory appeared mostly reliable but no more formally tested. She is alert and oriented x 3. Her insight and judgment were limited. Her impulse control appeared fair at this time. Vitals/I&O/Wt Last Vital Signs Temp 98.7 F 09/01/24 14:00 Pulse 102 H 09/01/24 14:00 Resp 18 09/01/24 14:00 BP 110/71 09/01/24 14:00 Pulse Ox 97 09/01/24 14:00 O2 Del Method Room Air 09/01/24 06:00 Data NPU 08/25/24 22:14 08/25/24 22:14 A&P Assessment and plan (1) MDD (major depressive disorder), recurrent, severe, with psychosis: (2) Social anxiety disorder: Plan 18-year-old female with a history of major depressive disorder who reports some psychotic symptoms at this time that appear to be worsening with unknown acute stressors currently not on an antipsychotic at this time. The patient appears willing to receive help and would benefit from a medication to prevent further decompensation. 1.? Encourage individual, group and milieu therapy. 2.??Encourage sober living treatment at the highest level of care to which the patient is willing to commit. 3.? Increased abilify to 10mg daily, Decrease wellbutrin xl 150mg in am, increased Zoloft to 50 mg p.o. daily. Discontinue Wellbutrin XL at discharge. 4.??Continue every 15 minute checks for safety.? 5.??Will attempt to gather collateral information Involuntary Hold Information 2 96 Hour Hold: 96 Hour Involuntary Admission: Yes 96 Hour Hold Ending Date: 08/31/24 96 Hour Hold Ending Time: 23:45 Other Hold: Hold End Date: 08/31/24 Attestations NPU 2 Medical Necessity Statement*: Inpatient hospitalization is medically necessary and the clinically appropriate intervention at this time.? We will monitor/initiate medications and make changes as indicated.? The patient?s likely length of stay 1-2 days. Coding Level of Care Code Acute Code for Chg Fwd Diagnoses MDD (major depressive disorder), recurrent, severe, with psychosis F33.3 Social anxiety disorder F40.10
[2024-09-01 20:19] VITALS: BP 120/80; PULSE 103; RESP 16; TEMP 36.6; O2SAT 98
[2024-09-01] MEDS: hyDROXYzine 25 mg Capsule 50 MG PO (21:04)
[2024-09-01] MEDS: trazodone 100 mg Tablet PO (21:04)
[2024-09-01] MEDS: docusate sodium 100 mg Capsule PO (21:04)
[2024-09-02 06:00] VITALS: BP 113/66; PULSE 87; RESP 16; TEMP 36.7; O2SAT 97
[2024-09-02] MEDS: ARIPiprazole 10 mg Tablet PO (08:51)
[2024-09-02] MEDS: sertraline 50 mg Tablet PO (08:51)
[2024-09-02] MEDS: NON-FORMULARY MEDICATION 1 EACH XX (08:51)
[2024-09-02] MEDS: buPROPion XL (24 HR) 150 mg Tablet PO (08:51)
--- NOTE | 2024-09-02 11:06 | P.NPUDS_ITS ---
Diagnoses at Discharge Discharge Diagnosis (1) MDD (major depressive disorder), recurrent, severe, with psychosis: Status: Acute (2) Social anxiety disorder: Status: Acute Reason for Visit Reason for Visit: SI Brief History: History of Present Illness Dottie Soto is a 18 year old female with 1 previous inpatient psychiatric hospitalization who presented to the emergency department with concerns about suicidal ideation. The patient was admitted to the neuropsychiatric unit for further evaluation and treatment. She reports that she has been receiving treatment under Dr. Yoder at the behavioral health clinic. She reported that she has been struggling with having difficulties with controlling her thoughts at this time. She endorses depressed mood for several years but reports that she has had increased episodes of crying, diminished energy, difficulties with concentration and difficulties with falling asleep and staying asleep. She repo rts that she has had increasing feelings of guilt. She reports that she had been struggling with having control over intrusive sexualized images and her had then involved people including both children and adults. She had reported that she had not acted on any of these images but reported that she found these images to be quite disturbing. During the interview, the patient had asked that the show card writer come closer to her to reveal this information as she had endorsed that she had felt like her thoughts and images were somehow being broadcasted to others and stated that she was not certain that these thoughts were being kept in her own mind. She reports that she had had this problem with intrusive sexualized images and intrusive thoughts for more than a year but stated that she has been trying to keep it under control. She reports that she has been struggling with keeping it under control as she requested a change in medication regimen. She reports that for the first time she has been having some difficulties in school as well with declining grades and diminished concentration after having straight A's in college the prior semester. She does report increased feelings of hopelessness. She denies any drug or alcohol use. She had reported having engaged in some rituals but reported that there were no clear improvements once the rituals were completed. She states that when she was stressed she would often go to the bathroom and sit on the toilet or would attempt to go into a room. She reports that the intrusive thoughts appear to be out of nowhere and reports that they have been scaring her recently. She denies any auditory hallucinations or visual hallucinations at this time. She did not endorse any problems with paranoia. She did report that she often would eat e xcessively when anxious and described having problems with social anxiety as well in the past. Patient's urine screen was negative for all drugs or alcohol. She does report that she has had increasing stress as she is scheduled to be in 2 weeks to her boyfriend. Inpatient psychiatric history: The patient had reported having been hospitalized at [facility] 1 time in the past for similar issues including suicidal ideation and states having spent 10 days there in January 2024. It appears that during that stay the patient had been placed on risperidone and gradually transition to Invega sustain a but was given only 1 shot of 234 mg prior to arriving at her outpatient appointment at which time she did not receive either the oral risperidone nor the 156 mg of IM Invega. Outpatient psychiatric history: Patient reports receiving weekly therapy at [facility] and states seeing Dr. Yoder for medication management every few months. Previous psychiatric diagnosis includes obsessive- compulsive personality traits, social anxiety disorder, major depressive disorder Current medications: Wellbutrin XL 300 mg daily, trazodone 100 mg at night, Zyrtec 10 mg daily Medical history: None other than seasonal allergies Surgical history: None Allergies: No known drug allergies Legal history: None Family psychiatric history: None Substance abuse history: None Social history: There are no history of developmental delays. Patient currently lives at home with her mother while attending [employer] in [facility]. She had been described as an a student and was the valedictorian of her high school class. She describes herself as a baptist Gnosticism. She reports that her parents when she was only 9 years old. She has a younger sister aged 18 that she lives in the household as well. She had reported having difficulties with the divorce. She reports that she continues to maintain a relationship with her father. She had hopes of going to nursing school and states that she has been involved in a relationship with a man and states that she is scheduled to be in 2 weeks. She did not endorse being employed at this time. Involuntary Hold Information 96 Hour Hold: 96 Hour Involuntary Admission: Yes 96 Hour Hold Ending Date: 08/31/24 96 Hour Hold Ending Time: 23:45 Other Hold: Hold End Date: 08/31/24 Mental Status Exam MSE Comments: This is a slender white female in hospital scrubs with adequate grooming and eye contact. No abnormal movements except for mild to moderate psychomotor retardation. Cooperative with exam in mild distress. Speech was decreased rate and volume. Mood described as a little better, affect was congruent but restricted. Her thought process was linear, logical, and goal-directed. Thought content: Patient denied suicidal or homicidal ideation, there were no delusions reported or noted, she denied any auditory or visual hallucinations but did endorse intrusive sexual images that appear to be somewhat distracting to her. She had continued reports of concerns of thought broadcasting with no thought insertion. Attention and concentration are intact and memory appeared mostly reliable but no more formally tested. She is alert and oriented x 3. Her insight and judgment were limited. Her impulse control appeared fair at this time. Discharge Data Studies Completed and Pending: Laboratory Results WBC 10.18 10^3/uL (4. 5-13.0) 08/25/24 22:14 RBC 4.29 10^6/uL (3.8 5-5.65) 08/25/24 22:14 Hgb 12.00 g/dL (12.4- 14.8) L 08/25/24 22:14 Hct 35.9 % (36-47) L 08/25/24 22:14 MCV 83.7 fl (85-98) L 08/25/24 22:14 MCH 28.0 pg (27-33) 08/25/24 22:14 MCHC 33.4 g/dL (30-55) 08/25/24 22:14 RDW 12.0 % (12.1-15.1 ) L 08/25/24 22:14 Plt Count 238 10^3/cmm (157 -399) 08/25/24 22:14 MPV 11.1 fL (7.4-10.4 ) H 08/25/24 22:14 Neut % (Auto) 66.3 % 08/25/24 22:14 Lymph % (Auto) 25.0 % 08/25/24 22:14 Estill % (Auto) 6.9 % 08/25/24 22:14 Eos % (Auto) 1.1 % 08/25/24 22:14 Baso % (Auto) 0.4 % 08/25/24 22:14 Neut # (Auto) 6.75 10^3/uL (1.8 -8.0) 08/25/24 22:14 Lymph # (Auto) 2.6 10^3/uL (1.5- 6.5) 08/25/24 22:14 Estill # (Auto) 0.7 10^3/uL (0.2- 0.9) 08/25/24 22:14 Eos # (Auto) 0.1 10^3/uL (0.0- 0.8) 08/25/24 22:14 Baso # (Auto) 0.0 10^3/uL (0.0- 0.1) 08/25/24 22:14 Nucleated RBC % (a uto) 0 % 08/25/24 22:14 Nucleated RBCs # 0.0 /100WBC 08/25/24 22:14 Sodium 135 mmol/L (136-1 45) L 08/25/24 22:14 Potassium 3.7 mmol/L (3.5-5 .1) 08/25/24 22:14 Chloride 100 mmol/L (98-10 7) 08/25/24 22:14 Carbon Dioxide 23 mmol/L (22-29) 08/25/24 22:14 Anion Gap 15.7 (5-19) 08/25/24 22:14 BUN 13 mg/dL (6-20) 08/25/24 22:14 Creatinine 0.6 mg/dL (0.5-0. 9) 08/25/24 22:14 GFR Calculation 128.8 mL/min (90- 130) 08/25/24 22:14 Glucose 103 mg/dL (65-115 ) 08/25/24 22:14 Calculated Osmolal ity 280 mOsm/kg (285- 295) L 08/25/24 22:14 Calcium 9.1 mg/dL (8.5-10 .5) 08/25/24 22:14 Total Bilirubin 0.2 mg/dL (0.15-1 .2) 08/25/24 22:14 AST 14 U/L (0-32) 08/25/24 22:14 ALT 12 U/L (0-33) 08/25/24 22:14 Alkaline Phosphata se 90 U/L (35-105) 08/25/24 22:14 Total Protein 7.1 g/dL (6.6-8.7 ) 08/25/24 22:14 Albumin 4.3 g/dL (3.5-5.2 ) 08/25/24 22:14 Globulin 2.8 g/dL (1.3-4.6 ) 08/25/24 22:14 TSH 3.10 uIU/mL (0.27 -4.20) 08/25/24 22:14 HCG, Qual Negative (Negati ve) 08/25/24 22:00 Urine Color Yellow (Yellow) 08/25/24 22:00 Urine Appearance Clear (CLEAR) 08/25/24 22:00 Urine pH 7.0 (5-7) 08/25/24 22:00 Ur Specific Gravit y 1.013 (1.005-1.0 30) 08/25/24 22:00 Urine Protein Negative (Negati ve) 08/25/24 22:00 Urine Glucose (UA) Negative (Normal ) 08/25/24 22:00 Urine Ketones Negative (Negati ve) 08/25/24 22:00 Urine Blood Negative (Negati ve) 08/25/24 22:00 Urine Nitrate Negative (Negati ve) 08/25/24 22:00 Urine Bilirubin Negative (Negati ve) 08/25/24 22:00 Urine Urobilinogen 1.0 mg/dL (Negati ve) 08/25/24 22:00 Ur Leukocyte Diamond ase Negative (Negati ve) 08/25/24 22:00 Urine RBC 0-2 /hpf (0-2) 08/25/24 22:00 Urine WBC 0-5 /hpf (0-5) 08/25/24 22:00 Ur Squamous Epith Cells 0-5 /hpf (0-5) 08/25/24 22:00 Amorphous Sediment Not Reportable 08/25/24 22:00 Urine Bacteria None seen /hpf (N ONE) 08/25/24 22:00 Hyaline Casts 0-4 /lpf H 08/25/24 22:00 Salicylates < 0.3 mg/dL (3-10 ) L 08/25/24 22:14 Urine Opiates Scre en Negative ng/mL (N egative) 08/25/24 22:00 Acetaminophen < 5.0 ug/mL (10-3 0) L 08/25/24 22:14 Ur Barbiturates Sc reen Negative ng/mL (N egative) 08/25/24 22:00 Ur Phencyclidine S crn Negative ng/mL (N egative) 08/25/24 22:00 Ur Amphetamines Sc reen Negative ng/mL (N egative) 08/25/24 22:00 U Benzodiazepines Scrn Negative ng/mL (N egative) 08/25/24 22:00 Urine Cocaine Scre en Negative ng/mL (N egative) 08/25/24 22:00 U Marijuana (THC) Screen Negative ng/mL (N egative) 08/25/24 22:00 Ethyl Alcohol < 10 mg/dL (0-10) 08/25/24 22:14 Vitals: Last Vital Signs Temp 98.0 F 09/02/24 06:00 Pulse 87 09/02/24 06:00 Resp 16 09/02/24 06:00 BP 113/66 09/02/24 06:00 Pulse Ox 97 09/02/24 06:00 O2 Del Method Room Air 09/02/24 06:00 Discharge Plan Discharge Patient Disposition: Home Condition: Stable Prescriptions: New hydroxyzine pamoate 25 mg Capsule 50 mg PO Q6H PRN (Reason: Anxiety) 30 Days Qty: 120 1RF aripiprazole 10 mg Tablet 10 mg PO DAILY 30 Days Qty: 30 1RF sertraline 100 mg tablet 100 mg PO DAILY 30 Days Qty: 30 1RF Rx Instructions: Take 1/2 tab for 10 days then 1 tab daily Continued cetirizine 10 mg tablet 10 mg PO DAILY PRN (Reason: Allergy Symptoms) 30 Days Qty: 30 1RF Changed trazodone 100 mg tablet 100 mg PO BEDTIME 30 Days Qty: 30 1RF Discontinued bupropion HCl [Wellbutrin XL] 300 mg tablet extended release 24 hr 300 mg PO DAILY Discharge Orders: Discharge Order (Routine); Ordered 09/02/24 Ordered By: Nader Singletary Referrals: [facility] [Other] (Call [facility] for any concerns or needs such as transportation) Ludy Davis NP [Primary Care Provider] - Dmitri Yoder MD [Physician] - 09/23/24 3:15 pm (Follow up) Alivia Lynch LCSW [Therapist] - 09/07/24 7:00 am (Follow up) Discharge Diet: Regular Discharge Activity: Resume usual activity Patient Instructions: Opioid Safety Discharge Attestations NPU Time Spent in Discharge Care*: less than 30 min Specific Discharge Activities: Specific discharge activities: educating patient, discussing with window caser/social workers/dc planners, documenting/other paperwork and evaluating patient/reviewing data Coding Level of Care Code Acute Code for Chg Fwd Diagnoses MDD (major depressive disorder), recurrent, severe, with psychosis F33.3 Social anxiety disorder F40.10
[2024-09-02 11:12] VITALS: BP 113/66; PULSE 87; RESP 16; TEMP 36.7; O2SAT 97
== END 2024-09-02 13:10 | disposition home or self-care (01) | DRG 885 ==
LOC: ER 23:41 → NP 08-26 07:29
PROVIDERS: Admitting Provider Psychiatry & Neurology Psychiatry; Emergency Provider Emergency Medicine; PCP Nurse Practitioner Family; Visit Provider Psychiatry & Neurology Psychiatry
DX: F33.3 Major depressive disorder, recurrent, severe with psychotic symptoms (principal); R45.851 Suicidal ideations; F40.10 Social phobia, unspecified; R45.88 Nonsuicidal self-harm
CPT/HCPCS: 36415; 80053; 80306; 80307; 81001; 81025; 84443; 85025; 97150; 97165; 99285